=== PATIENT | male | born 1975 | race Caucasian/White ===

== ENCOUNTER 2019-08-16 09:15 | Emergency (ER) | payer OTHER, SELFPAY ==
--- NOTE | 2019-08-16 09:25 | ED.URI ---
HPI - URI/Sore Throat General Chief Complaint: Upper Respiratory Infection Stated Complaint: fever/sore throat/nasal congestion/cough Time Seen by Provider: 08/16/19 09:25 Source: patient and RN notes reviewed History of Present Illness HPI Narrative: Patient is a 43-year-old male that presents the urgent care with complaints of fever up to 103 Fahrenheit last night, sore throat, nasal drainage, cough. Patient states that symptoms started Tuesday and have worsened since yesterday. Patient has had a productive yellow cough with intermittent wheezing. Patient states that he does have a history of asthma and seems to be using his inhaler more. Denies of any shortness of breath. Has been using Tylenol, ibuprofen, Claritin-D, Flonase for symptoms. No other acute complaints. No acute distress noted. Patient read the plan of care. Related Data Home Medications Medication Instructions Recorded Confirmed albuterol sulfate [ProAir HFA] 2 puff INHALATION Q4-6H PRN 08/16/19 08/16/19 loratadine-pseudoephedrine 1 tablet PO BID 08/16/19 08/16/19 [Claritin-D 12 Hour] Allergies Allergy/AdvReac Type Severity Reaction Status Date / Time erythromycin base Allergy Unknown HIVES, N/V Verified 08/16/19 09:24 Review of Systems Review of Systems: Narrative: CONSTITUTIONAL: Reports a fever, chills, sweats EYES: Denies visual changes, redness, or discharge. ENT: Reports of postnasal drainage, sore throat, congestion CARDIOVASCULAR: Denies chest pain, palpitations, or edema. RESPIRATORY: Reports of productive yellow cough with intermittent wheezing GASTROINTESTINAL: Denies abdominal pain, nausea, vomiting, or diarrhea. GENITOURINARY: Denies dysuria or hematuria. SKIN: Denies rash or itching. MUSCULOSKELETAL: Denies back pain, joint pain; reports of fatigue and body aches NEUROLOGIC: Denies headache, numbness, or weakness. All other systems reviewed are negative, except as documented in HPI. PMFSH Comments At the time of my signature, I reviewed and agree with the nursing past medical, surgical, social, and family history. There is no relevant family history pertinent to the patient complaint. Exam Narrative: Exam Narrative: GENERAL: This is a well-nourished, well-developed patient, in no apparent distress. HEAD: normocephalic, atraumatic. EYES: PERRL. Sclera clear/white. Vision is grossly intact. EARS: External ears normal, auditory canals clear and without drainage, mild fluid noted behind bilateral TMs, TMs normal without perforation. Hearing grossly intact. NOSE: External nose normal with no obvious nasal discharge, mild bilateral erythemic nares with clear rhinorrhea THROAT: Mucous membranes moist, moderate erythema noted posterior oropharynx with moderate postnasal drainage NECK: Neck supple, non-tender without lymphadenopathy CARDIOVASCULAR: Regular rate and rhythm without murmurs, gallops, or rubs. RESPIRATORY: Diminished left lower lobe with slight crackles, cleared with cough. SKIN: warm, intact with no suspicious lesions or rash, good texture and turgor. NEURO: awake, alert, and oriented to person, place and time. There were no obvious focal neurologic abnormalities. EXTREMITIES: No clubbing, cyanosis, or edema. Course Vital Signs Vital signs: Vital Signs Temperature 98.3 F 08/16/19 09:26 Pulse Rate 104 H 08/16/19 09:26 Respiratory Rate 18 08/16/19 09:26 Blood Pressure 125/78 08/16/19 09:26 Pulse Oximetry 97 08/16/19 09:26 Temperature 98.3 F 08/16/19 09:26 Pulse Rate 104 H 08/16/19 09:26 Respiratory Rate 18 08/16/19 09:26 Blood Pressure 125/78 08/16/19 09:26 Pulse Oximetry 97 08/16/19 09:26 Reviewed MDM - URI/Sore Throat MDM Narrative Medical decision making narrative: Reviewed lab results with the patient. He is aware that strep and influenza swabs are both negative. Educated him on strep culture and we will call within 72 hours if culture is positive. Advised the patient continue use inha
[2019-08-16 09:26] VITALS: BP 125/78; PULSE 104; RESP 18; TEMP 36.8; O2SAT 97
== END 2019-08-16 09:58 | disposition home or self-care (01) ==
PROVIDERS: Emergency Provider Nurse Practitioner Family
DX: J40 Bronchitis, not specified as acute or chronic (principal); R09.89 Other specified symptoms and signs involving the circulatory and respiratory systems; J45.909 Unspecified asthma, uncomplicated
CPT/HCPCS: 87081; 87804; 87880; 99203; G0463